=== PATIENT | male | born 1985 | race African-American/Black ===

== ENCOUNTER 2021-02-25 19:10 | Emergency (ER) | payer OTHER | END 2021-02-25 21:38 | disposition left against medical advice (07) | DRG 951 | LOC: ED 19:10 → LWOBS 21:36 | DX: Z53.21 Procedure and treatment not carried out due to patient leaving prior to being seen by health care provider (principal) ==

== ENCOUNTER 2022-10-27 13:46 | Emergency (ER) | payer OTHER ==
[~2022-10-27] VITALS: Ht 180.3 cm; Wt 95.0 kg
[2022-10-27] VITALS (11 sets, daily range): BP systolic 102–138; BP diastolic 56–78
[2022-10-27 14:33] LABS: BASO% 0.1 % (0-3); HEMATOCRIT 43.1 % (39.0-50.0); HEMOGLOBIN 14.3 g/dl (14.0-18.0); IMMATURE GRANULOCYTES 0.7 % (0.0-5.0); LYMPH% 6.9 % (15-41); MEAN CELL VOLUME 86.5 fL CALC (80.0-100.0); MEAN CORPUSCULAR HGB 28.7 pG CALC (26.0-32.0); MEAN CORPUSCULAR HGB CONC 33.2 g/dL CAL (32.0-36.0); MONO% 2.9 % (2-13); NEUT# 9.3 thou/uL (1.82-7.42); NEUT% 89.4 % (42-76); RED BLOOD COUNT 4.98 mill/uL (4.70-6.10); RED CELL DISTRI WIDTH 12.6 % (11.5-15.5)
[2022-10-27 14:34] LABS: URINE BILIRUBIN - DIPSTICK Negative (NEGATIVE); URINE BLOOD DIPSTICK Negative (NEGATIVE); URINE GLUCOSE - DIPSTICK Negative (NEGATIVE); URINE KETONE Trace mg/dL (NEGATIVE); URINE LEUK ESTERASE Negative (NEGATIVE); URINE NITRITE - DIPSTICK Negative (Negative); URINE PROTEIN - DIPSTICK 100 mg/dL (NEG-TRACE); URINE SPECIFIC GRAVITY >=1.030; URINE UROBILINOGEN - DIPSTICK 0.2 E.U./dL (0.2)
[2022-10-27 14:38] LABS: ALBUMIN 4.5 g/dL (3.2-5.0); ALKALINE PHOSPHATASE 65 u/l (38-126); ANION GAP 14 (6-22 (CALC)); BILIRUBIN, TOTAL 0.8 mg/dL (0.2-1.3); BUN 18 mg/dL (9-20); BUN/CREATININE RATIO 15 (12-20 (CALC)); CARBON DIOXIDE 24 mmol/l (22-30); CHLORIDE 103 mmol/l (95-108); CREATININE 1.2 mg/dL (0.7-1.3); GFR FOR AFR.AMER. > 60 ML/MIN (>=60 (CALC)); GFR OTHER RACES > 60 ML/MIN (>=60 (CALC)); LIPASE 78 u/l (23-300); SGOT/AST 50 u/l (17-59); SODIUM 137 mmol/l (137-146); TOTAL PROTEIN 8.1 g/dL (6.3-8.2)
[2022-10-27 14:41] LABS: URINE COLOR Dark yellow
[2022-10-27 14:42] LABS: URINE MUCUS MODERATE hpf (NONE-FEW); URINE WBC 0-2 WBC/hpf (0-5)
[2022-10-27] MEDS ORDERED: IMODIUM2 MG PO (16:45)
[2022-10-27] MEDS ORDERED: PROMETHAZINE HY25 M1 PO (16:45)
== END 2022-10-27 16:58 | disposition home or self-care (01) | DRG 392 ==
LOC: ED 13:46
PROVIDERS: Family Medicine
DX: A08.4 Viral intestinal infection, unspecified (principal)
CPT/HCPCS: Q9967; S0164